=== PATIENT | male | born 1990 | race Caucasian/White ===

== ENCOUNTER 2021-04-25 19:20 | Emergency (ER) | payer OTHER ==
[~2021-04-25 19:20] MED LIST: KEFLEX250 MG PO; LIDOCAINE PAIN1 EACH TOP; MELOXICAM7.5 MG PO; VOLTAREN **OUT75 MG PO
[2021-04-25] MEDS ORDERED: CEPHALEXIN250 MG PO (23:08)
== END 2021-04-25 23:20 | disposition home or self-care (01) ==
LOC: FER 19:20
DX: S71.112A Laceration without foreign body, left thigh, initial encounter (principal); F17.200 Nicotine dependence, unspecified, uncomplicated; V29.9XXA Motorcycle rider (driver) (passenger) injured in unspecified traffic accident, initial encounter; Y92.410 Unspecified street and highway as the place of occurrence of the external cause
CPT/HCPCS: J0171

== ENCOUNTER 2021-05-04 14:28 | Emergency (ER) | payer OTHER ==
[~2021-05-04 14:28] MED LIST changes: +CEPHALEXIN250 MG PO
[2021-05-04 15:55] LABS: EOSINOPHIL 1.9 % (0-5); HCT 46.6 % (42.0-52.0); HGB 15.5 g/dl (13.2-18.0); MCH 30.9 pg (25.0-31.0); MCHC 33.3 g/dL (32.0-36.0); MONOCYTE 11.2 % (0-12); MPV 8.7 fL (6.0-9.5); NEUTROPHIL 58.4 % (41-80); NRBC 0; PLT 355 K/uL (150-400); RBC 5.01 M/uL (4.70-6.00); RDW 12.6 % (11.5-14.0); WBC 4.2 K/uL (4.0-10.5)
[2021-05-04 16:10] LABS: ALBUMIN 3.7 g/dL (3.4-5.0); BILIRUBIN - TOTAL 0.4 mg/dL (0.2-1.0); BUN/CREAT RATIO (CALC) 14.3 RATIO; C-REACTIVE PROTEIN 1.6 mg/dL (<=0.90); CREATININE 0.98 mg/dL (0.67-1.17); GLOBULIN (CALCULATION) 3.6 g/dL; POTASSIUM 4.6 mmol/L (3.5-5.1); TOTAL PROTEIN 7.3 g/dL (6.4-8.2)
== END 2021-05-04 17:34 | disposition home or self-care (01) ==
LOC: FER 14:28
PROVIDERS: Emergency Medicine
DX: S81.811D Laceration without foreign body, right lower leg, subsequent encounter (principal); F17.210 Nicotine dependence, cigarettes, uncomplicated
CPT/HCPCS: 36415; 73700; 80053; 84145; 85025; 86140